=== PATIENT | female | born 1950 | race Two or more races ===

== ENCOUNTER 2020-08-03 19:49 | Emergency (ER) | payer OTHER, SELFPAY ==
[~2020-08-03] VITALS: Ht 160 cm; Wt 72.6 kg
[2020-08-03 19:52] VITALS: Ht 160 cm; Wt 72.6 kg
[2020-08-03 21:58] LABS: microscopic required? NO
[2020-08-03 22:08] LABS: BASOPHIL % 0.4 % (0-2); PLATELET COUNT 266 x10^3mcL (130-400); RED CELL DISTRIBUTION WIDTH 12.9 % (11.5-14.5)
[2020-08-03 22:15] LABS: UA SPECIFIC GRAVITY 1.015 (1.005-1.035); urine erythrocyte NEGATIVE (NEGATIVE)
[2020-08-03 22:18] LABS: CALCIUM 8.5 mg/dL (8.5-10.1); CARBON DIOXIDE 28.8 mmol/L (21-32); POTASSIUM SERUM 4.2 mmol/L (3.5-5.1)
[2020-08-03 22:23] LABS: BILIRUBIN TOTAL 0.3 mg/dL (0.20-1.00)
[2020-08-03 22:24] LABS: ALBUMIN 3.1 g/dL (3.4-5.0); CHOLESTEROL/HDL RATIO 2.2
[2020-08-03 22:35] LABS: T3 TOTAL 1.35 ng/mL
[2020-08-03 22:37] LABS: FREE T4 1.22 ng/dL (0.76-1.46); FREE THYROXINE INDEX 3.4 ug/dL (1.4-4.5); T4(THYROXINE) 10.9 ug/dL (4.7-13.3)
[2020-08-03 23:36] VITALS: BP 149/81
== END 2020-08-03 23:36 | disposition home or self-care (01) ==
LOC: ED 19:49
PROVIDERS: Specialist
DX: U07.1 COVID-19 (principal); J12.89 Other viral pneumonia; I10 Essential (primary) hypertension; E11.9 Type 2 diabetes mellitus without complications; Z85.3 Personal history of malignant neoplasm of breast
CPT/HCPCS: 36600; 83880; 84439